=== PATIENT | female | born 1950 | race Asian ===

== ENCOUNTER → 2019-05-29 | Emergency (ER) | payer SELFPAY ==
[~2019-05-29] MED LIST: SODIUM CHLORIDE 0.9% 1000 ML 1,000 ML ONE
--- NOTE | 2019-05-29 19:42 | Emergency Department Report ---
HPI - HPI HPI: [facility] Date of Service: 05/29/2019 14:03:22 Impression: RO Acute Ischemic Stroke Comments: The patient has been confused with diarhea for the last few weeks. Concern for GBS is on the table. CT head/cta head/neck, and NFS q 4 hours ICU admission. Possible Guillane [place], so needs workup for this if CTA head/neck is negative. Mechanism of Stroke: Possible Thromboembolic Metrics: Last Known Well: 05/28/2019 17:00:00 [facility] Notification Time: 05/29/2019 14:02:28 Arrival Time: 05/29/2019 14:03:22 Stamp Time: 05/29/2019 14:03:22 Time First Login Attempt: 05/29/2019 14:10:42 Video Start Time: 05/29/2019 14:10:42 Symptoms: chest pain and uncontrolled diarrhead NIHSS Start Assessment Time: 05/29/2019 14:11:04 Patient is not a candidate for tPA. Patient was not deemed candidate for tPA thrombolytics because of Last Well Known Above 4.5 Hours. Video End Time: 05/29/2019 14:11:06 CT head showed no acute hemorrhage or acute core infarct. Clinical Presentation is Suggestive of Large Vessel Occlusive Disease, Recommendations are as Follows Reviewed, No Indication of Large Vessel Occlusive Thrombus, Patient is not an CON[facility] Candidate. Radiologist was called back for review of advanced imaging on 05/29/2019 14:12:05 ED Physician notified of diagnostic impression and management plan on 05/29/2019 14:12:04 Our recommendations are outlined below. Recommendations: Activate Stroke Protocol Admission/Order Set Stroke/Telemetry Floor Neuro Checks Bedside Swallow Eval DVT Prophylaxis IV Fluids, Normal Saline Head of Bed Below 30 Degrees Euglycemia and Avoid Hyperthermia (PRN Acetaminophen) Hold Antithrombotics for Now Recommended Scan: MRI Head with and Without Contrast Lipid Panel to Be Obtained, if Not Done in the Last Three Months Therapies: Physical Therapy, Occupational Therapy, Speech Therapy Assessment When Applicable Dysphaghia Screen: Swallow Evaluation, Bedside NPO Until Swallow Evaluation Disposition: Follow up with Teleneurology Follow up Sign Out: Discussed with Emergency Department Provider History of Present Illness: Patient was brought by EMS for symptoms of chest pain and uncontrolled diarrhead she was last normal yestrday. CT head showed no acute hemorrhage or acute core infarct. Last seen normal was beyond 4.5 hours of presentation. There is no history of hemorrhagic complications or intracranial hemorrhage. There is no history of Recent Anticoagulants. There is no history of recent major surgery. There is no history of recent stroke. Examination: 1A: Level of Consciousness - Alert; keenly responsive + 0 1B: Ask Month and Age - Both Questions Right + 0 1C: Blink Eyes & Squeeze Hands - Performs Both Tasks + 0 2: Test Horizontal Extraocular Movements - Normal + 0 3: Test Visual Yin - No Visual Loss + 0 4: Test Facial Palsy (Use Grimace if Obtunded) - Normal symmetry + 0 5A: Test Left Arm Motor Drift - No Drift for 10 Seconds + 0 5B: Test Right Arm Motor Drift - No Drift for 10 Seconds + 0 6A: Test Left Leg Motor Drift - No Drift for 5 Seconds + 0 6B: Test Right Leg Motor Drift - No Drift for 5 Seconds + 0 7: Test Limb Ataxia (FNF/Heel-Stone) - No Ataxia + 0 8: Test Sensation - Normal; No sensory loss + 0 9: Test Language/Aphasia - Normal; No aphasia + 0 10: Test Dysarthria - Normal + 0 11: Test Extinction/Inattention - No abnormality + 0 NIHSS Score: 0 Patient was informed the Neurology Consult would happen via TeleHealth consult by way of interactive audio and video telecommunications and consented to receiving care in this manner. Due to the immediate potential for life-threatening deterioration due to underlying acute neurologic illness, I spent 35 minutes providing critical care. This time includes time for face to face visit via telemedicine, review of medical records, imaging studies and discussion of findings with providers, the patient and/or family. Dr Trey Mena [facility] Case [id number] ED Review of Systems ROS: Stated complaint: CHEST PAIN/DIARRHEA/POSS STROKE Other details as noted in HPI Critical care attestation.: If time is entered above; I have spent that time in minutes in the direct care of this critically ill patient, excluding procedure time. ED Disposition Condition: Stable Referrals: PRIMARY CARE, [Primary Care Provider] - 3-5 Days
== END ==
LOC: ED 13:35
DX: R07.89 Other chest pain (principal); R19.7 Diarrhea, unspecified; Z53.21 Procedure and treatment not carried out due to patient leaving prior to being seen by health care provider
CPT/HCPCS: J7030